=== PATIENT | male | born 1950 | race Caucasian/White ===

== ENCOUNTER 2017-11-12 05:48 | Day surgery (SDC) | payer OTHER ==
[2017-11-11 16:18] LABS: HEMATOCRIT 37.2 % (42.0-54.0); HEMOGLOBIN 13.2 g/dL (13.5-17.5); MCH 31.7 pg (26.0-34.0); MCHC 35.5 g/dL (31.0-37.0); MCV 89.2 fL (80.0-100.0); MEAN PLATELET VOLUME 9.2 fL (7.4-10.4); RBC 4.17 10x6/uL (4.20-6.10); RDW 12.4 % (11.5-14.5); WBC 7.4 10x3/uL (4.8-10.8)
[2017-11-11 16:35] LABS: ANION GAP 13.9 mmol/L (8-16); CALCIUM 8.9 mg/dL (8.5-10.1); CREATININE - SERUM 1.4 mg/dL (0.6-1.3); POTASSIUM - SERUM 3.9 mmol/L (3.5-5.1)
[~2017-11-12] VITALS: Ht 162.6 cm; Wt 79.4 kg
--- NOTE | ~2017-11-12 | OP ---
PATIENT NAME: ARELY PHOENIX MEDICAL RECORD: [id number] :54 LOCATION:.[facility] ADMISSION DATE: SURGEON: HOMERO MARTINEZ MD DATE OF OPERATION: 11/12/2017 SURGEON: Homero Martinez MD ANESTHESIA: MAC by Oskar Davison CRNA PREOPERATIVE DIAGNOSIS: Abnormal prostate on examination with a nodule at the left apex. PROCEDURES: Transrectal of prostate and prostate biopsy. FINDINGS: A 44.6 gram prostate with intraprostatic stones, no hypoechoic areas. ESTIMATED BLOOD LOSS: None. CLINICAL HISTORY: This is a 66-year-old male referred by his primary care physician for a nodule on the left apex of the prostate on digital rectal examination. This nodule was not present on the examination done the year before. The patient's PSA in August 10 2017 was 1.21. He does have a positive family history of prostate cancer with his father having had prostate cancer at age 65. He does have voiding symptoms including nocturia times 2, hesitancy, and slow urinary flow. I started him on tamsulosin to improve his urinary flow, but not affect his PSA. He comes today to have a prostate biopsy performed. He is ALLERGIC TO PENICILLIN. He was given Levaquin IV restaurant operations manager to the OR. DESCRIPTION OF PROCEDURE: The patient was given IV sedation. He was then placed in dorsal lithotomy position. The transrectal ultrasound probe was placed into the bladder and we obtained size measurements of the prostate. We obtained a size of 44.6 grams. There were no hypoechoic areas visible. There were intraprostatic stones visible on the ultrasound. We then obtained sextant biopsies. I tried to focus on the left apex where we palpated the nodule and took extra samples from the left apex. Once all the samples were obtained, we sent them in separate formalin containers to pathology. The patient was then awakened and brought to the preoperative holding area. We will see him in followup next week to review his pathology with him. TRANSINT:[id number] Voice Confirmation ID: [id number] DOCUMENT ID: [id number] HOMERO MARTINEZ MD at 1243 CC: [id number] DICTATION DATE: 11/12/17 1203 CURRICULUM CONSULTANT: 11/12/17 1232 [facility] [address] [place] [address]
[~2017-11-12 05:48] MED LIST: ASPIRIN EC81 M1 PO; BISOPROLOL-HCT1 EAC1 PO; CO Q-10100 MG PO; COZAAR100 MG PO; FISH OIL 1,2001 CAP PO; FLOMAX0.4 MG PO; GLUCOPHAGE500 MG PO; NORVASC5 MG PO; OMEPRAZOLE20 M1 PO; PROBIOTIC1 EAC1 PO; ZOCOR20 MG PO
[2017-11-12 07:44] VITALS: BP 105/59; Ht 162.6 cm; Wt 79.4 kg
== END 2017-11-12 13:20 | disposition home or self-care (01) ==
LOC: D.OPS 05:48
PROVIDERS: Anesthesiology
DX: N40.2 Nodular prostate without lower urinary tract symptoms (principal); I10 Essential (primary) hypertension; E11.9 Type 2 diabetes mellitus without complications; K21.9 Gastro-esophageal reflux disease without esophagitis; Z01.812 Encounter for preprocedural laboratory examination; Z80.42 Family history of malignant neoplasm of prostate